=== PATIENT | male | born 1995 | race Caucasian/White ===

== ENCOUNTER 2023-10-26 15:38 | Emergency (ER) | payer OTHER ==
[2023-10-26 15:47] VITALS: BMI 27.6
[2023-10-26] MEDS: ACETAMINOPHEN 1000 MG/100 ML BAG IVPB ONE (16:44)
[2023-10-26] MEDS: SODIUM CHLORIDE 0.9% 500 ML INFUS.BAG IV ONE (16:44)
[2023-10-26 16:49] LABS: BASO % 0.6 % (0-2.0); EOS % 0.3 % (0-4.5); HEMATOCRIT 41.6 % (35.4-49); HEMOGLOBIN 14.6 GM/dL (11.7-16.9); LYMPH % 9.3 % (8-40); MCH 28.2 pg (25.7-33.7); MEAN CELL VOLUME 80.5 fl (80-96); MEAN PLT VOLUME 7.8 fl (7.5-11.1); MONO % 13.6 % (3.8-10.2); NEUT % 76.2 % (42.8-82.8); PLATELET COUNT 202 10^3/uL (134-434); RBC 5.17 M/mm3 (4.00-5.60); RDW 13.1 % (11.9-15.9)
[2023-10-26 17:09] LABS: POTASSIUM 4.1 mmol/L (3.5-5.1)
[2023-10-26 17:11] LABS: ALBUMIN 4.5 g/dl (3.4-5.0); CALCIUM 9.8 mg/dL (8.5-10.1)
[2023-10-26 17:12] LABS: BLOOD UREA NITROGEN 14.1 mg/dL (7-18); MAGNESIUM 1.9 mg/dL (1.8-2.4)
[2023-10-26 17:15] LABS: CREATININE 1.2 mg/dL (0.55-1.3)
[2023-10-26 17:16] LABS: BILIRUBIN,TOTAL 0.6 mg/dL (0.2-1)
[2023-10-26 17:48] VITALS: BP 115/54; PULSE 103; RESP 18; TEMP 99.8
== END 2023-10-26 18:06 | disposition home or self-care (01) ==
LOC: JER 15:38
PROC: 3E033NZ Introduction of Analgesics, Hypnotics, Sedatives into Peripheral Vein, Percutaneous Approach (ICD-10-PCS; principal; 2023-10-26)
DX: R09.1 Pleurisy (principal); R20.0 Anesthesia of skin; R00.2 Palpitations; R07.9 Chest pain, unspecified; R00.0 Tachycardia, unspecified; Z20.822 Contact with and (suspected) exposure to COVID-19
CPT/HCPCS: 0241U-QW; 36415; 71046-TC-FY; 80053; 83735; 84484; 85025; 93005; 93010; 93308; 99285-25; J0131